=== PATIENT | female | born 1955 | race African-American/Black ===

== ENCOUNTER 2019-03-31 22:29 | Emergency (ER) | payer MEDICAID ==
[~2019-03-31] VITALS: Ht 162.6 cm; Wt 52.2 kg
[~2019-03-31 22:29] MED LIST: POTASSIUM CHLO10 MEQ ORAL; ZOFRAN ODT4 MG ORAL
--- NOTE | 2019-03-31 22:56 | NUR ---
ED Nurse Note: Pt ambulated into ED from home CO cough, runny nose, sore throat since february. Pt reports doing home remedies and clean eating to help improve her illness. Pt vss, no s/s of distress noted. Awaiting ERMD
[2019-03-31 22:58] VITALS: BP 129/75
--- NOTE | 2019-03-31 23:05 | NUR ---
ED Nurse Note: ERMD at bedside
--- NOTE | 2019-03-31 23:45 | NUR ---
ED Nurse Note: xray at bedside
--- NOTE | 2019-04-01 | NUR ---
ED Nurse Note: ERMD at bedside
[2019-04-01] MEDS ORDERED: ZITHROMAX250 MG ORAL (00:21)
--- NOTE | 2019-04-01 00:21 | Emergency Room Report ---
History of Present Illness General Chief Complaint: Flu Like Symptoms Source: Patient Present Illness HPI This a 63-year-old female who is a smoker. She presents with complaint of a cough this been ongoing for 3 to 4 weeks. No fever chills. Cough is occasionally productive of phlegm. Worse with at night. Worse lying down. No fever chills but no nausea no vomiting. No history of asthma. Still able to smoke without any problem. Denies any other complaint. Allergies: Coded Allergies: TETRACYCLINE (Verified Allergy, Unknown, 03/31/19) Uncoded Allergies: PENICILLIN (Allergy, Unknown, 04/14/15) Patient History Past Medical History: see triage record, old chart reviewed Past Surgical History: none Pertinent Family History: none Social History: Reports: smoking Now: No Immunizations: other Reviewed Nursing Documentation: PMH: Agreed; PSxH: Agreed Nursing Documentation-PMH Hx Hypertension: Yes Review of Systems Eye: Denies: eye pain, blurred vision ENT: Denies: ear pain, nose congestion, throat swelling Respiratory: Reports: cough; Denies: shortness of breath Cardiovascular: Denies: chest pain, palpitations Gastrointestinal: Denies: abdominal pain, diarrhea, nausea, vomiting Musculoskeletal: Denies: back pain, joint pain Skin: Denies: rash Neurological: Denies: headache, numbness Endocrine: Denies: increased thirst, increased urine Hematologic/Lymphatic: Denies: easy bruising All Other Systems: negative except mentioned in HPI Physical Exam Vital Signs Date Time Temp Pulse Resp B/P (MAP) Pulse Ox O2 Delivery O2 Flow Rate FiO2 03/31/19 22:48 98.2 85 17 129/72 (91) 98 Room Air Vitals normal Sp02 EP Interpretation: reviewed, normal General Appearance: well appearing, no apparent distress, alert Head: normocephalic, atraumatic Eyes: bilateral eye PERRL, bilateral eye EOMI ENT: hearing grossly normal, normal pharynx Neck: full range of motion, supple, no meningismus Respiratory: chest non-tender, lungs clear, normal breath sounds Cardiovascular #1: regular rate, rhythm, no murmur Gastrointestinal: normal bowel sounds, non tender, no mass, no organomegaly, no bruit, non-distended Musculoskeletal: back normal, normal range of motion, gait/station normal Psychiatric: mood/affect normal Medical Decision Making Diagnostic Impression: Primary Impression: Cough ER Course Patient presents with a cough. No evidence of ACS, PE, dissection to my view. Because been ongoing for 3 to 4 weeks, will prescribe antibiotics to cover for atypical pneumonia. Chest X-Ray Diagnostic Results Chest X-Ray Diagnostic Results : Chest X-Ray Ordered: Yes # of Views/Limited/Complete: 1 View Indication: Shortness of Breath EP Interpretation: Yes Interpretation: no consolidation, no effusion, no pneumothorax, no acute cardiopulmonary disease Impression: No acute disease Electronically Signed by: Juan Daniel Shah MD Last Vital Signs Date Time Temp Pulse Resp B/P (MAP) Pulse Ox O2 Delivery O2 Flow Rate FiO2 03/31/19 22:48 98.2 85 17 129/72 (91) 98 Room Air Status: improved Disposition: HOME, SELF-CARE Condition: Stable Scripts Azithromycin* (ZITHROMAX*) 250 Mg Tablet 250 MG ORAL DAILY, #6 TAB 0 Refills Take two tables once daily for 1 day, then one tablet once daily for 4 days. Prov: Juan Daniel Shah MD 04/01/19 Additional Instructions: Stop smoking. Follow-up with your doctor in 7 days but return if worse. Juan Daniel Shah MD Apr 01, 2019 00:21
[2019-04-01 00:25] VITALS: BP 124/79
[2019-04-01 00:30] VITALS: BP 129/75
--- NOTE | 2019-04-01 00:30 | NUR ---
ER DISCHARGE NOTE: Patient is cleared to be discharged home per ERMD, pt is aox4, on room air, with stable vital signs. pt was given dc and prescription instructions, pt was able to verbalize understanding, pt id band removed. pt is able to ambulate with steady gait. pt took all belongings.
--- NOTE | 2019-04-01 15:05 | Diagnostic Imaging Report ---
EXAM: XR Chest, 1 View CLINICAL HISTORY: SOB TECHNIQUE: Frontal view of the chest. COMPARISON: No relevant prior studies available. FINDINGS: Lungs: No consolidation or mass. Pleural space: No acute findings Heart: No cardiomegaly. Bones/joints: No acute findings. IMPRESSION: No acute cardiopulmonary process.
== END 2019-04-01 00:30 | disposition home or self-care (01) ==
LOC: EMR 23:02
DX: R05 Cough (principal); I10 Essential (primary) hypertension; F17.200 Nicotine dependence, unspecified, uncomplicated; Z88.0 Allergy status to penicillin; Z88.8 Allergy status to other drugs, medicaments and biological substances
CPT/HCPCS: 71045; Z7502; 99283